=== PATIENT | female | born 1960 | race Caucasian/White ===

== ENCOUNTER 2020-05-06 13:28 | Outpatient (CLI) | payer BC, OTHER | END 2020-05-06 13:29 | disposition home or self-care (01) | LOC: CTENTCT 13:28 | PROVIDERS: ATTEND Student in an Organized Health Care Education/Training Program | DX: J32.9 Chronic sinusitis, unspecified (principal) | CPT/HCPCS: 70486 ==

== ENCOUNTER 2020-05-16 05:37 | Outpatient (CLI) | payer BC, OTHER ==
[2020-05-16 16:33] LABS: Hemoglobin 13.7 g/dL (12.0-16.0)
[2020-05-17 14:45] LABS: SARS-CoV-2 MS2 Positive; SARS-CoV-2 N Gene Negative; SARS-CoV-2 S Gene Negative; SARS-CoV-2 by NAA Not Detected (NotDetected); SARS-CoV-2 orf1ab Negative
== END 2020-05-16 05:38 | disposition home or self-care (01) ==
LOC: LABBT 05:37
PROVIDERS: ATTEND Otolaryngology Plastic Surgery within the Head & Neck
DX: Z01.812 Encounter for preprocedural laboratory examination (principal); Z11.59 Encounter for screening for other viral diseases; J32.9 Chronic sinusitis, unspecified; J32.1 Chronic frontal sinusitis; J32.3 Chronic sphenoidal sinusitis; J32.2 Chronic ethmoidal sinusitis
CPT/HCPCS: 85014; 85018; 87635; U0003

== ENCOUNTER 2020-05-21 07:08 | Day surgery (SDC) | payer BC, OTHER ==
[2020-05-16 10:21] VITALS: BMI 30.4
[2020-05-21] MEDS ORDERED: AFRIN NASAL MIST 15 ML BOT ONE (08:35)
[2020-05-21] MEDS ORDERED: Lidocaine 1% w/Epinephrine 1:100K 20 ML VIAL ONE (08:57)
[2020-05-21] MEDS ORDERED: Fentanyl 100 MCG/2 ML VIAL ONE ×3 (09:04→10:43)
[2020-05-21] MEDS ORDERED: Succinylcholine Chloride 20 MG/ML 10 ml SYRINGE FS ONE (10:44)
[2020-05-21] MEDS ORDERED: PROPOFOL 200 MG/20 ML VIAL ONE (10:44)
[2020-05-21] MEDS ORDERED: Ondansetron PF 4 MG/2 ML Vial ONE (10:44)
[2020-05-21] MEDS ORDERED: PHENYLEPHRINE-NS 100 MCG/ML 10 ML SYRINGE ONE (10:44)
[2020-05-21] MEDS ORDERED: Lidocaine 1% PF 5 ML VIAL ONE (10:44)
[2020-05-21] MEDS ORDERED: Dexamethasone 20 MG/5 ML VIAL ONE (10:44)
[2020-05-21] MEDS ORDERED: HYDROcodone/Acetaminophen 5/325 mg Tablet ONE (11:37)
--- NOTE | 2020-05-22 18:02 | OP ---
DATE OF PROCEDURE: 05/21/2020 PREOPERATIVE DIAGNOSES: 1. Chronic rhinosinusitis. 2. Nasal polyposis. 3. Allergic fungal sinusitis. 4. Nasal obstruction. POSTOPERATIVE DIAGNOSES: 1. Chronic rhinosinusitis. 2. Nasal polyposis. 3. Allergic fungal sinusitis. 4. Nasal obstruction. PROCEDURES PERFORMED: 1. Right total ethmoidectomies with sphenoidotomies including removal of tissue. 2. Bilateral nasal endoscopy, frontal sinus exploration. 3. [employer] stereotactic image-guided surgery. ESTIMATED BLOOD LOSS: 50 mL. COMPLICATIONS: None. ANESTHESIA: GETA. DESCRIPTION OF PROCEDURE: The patient was taken to the operating room and placed supine on the table. General endotracheal anesthesia was obtained by the Anesthesia Staff. Tube was secured in the left lower lip. The patient was then placed in a beach-chair position, was prepped and draped for standard nasal procedures. Following this, a 0-degree endoscope was advanced to the nasal cavity. 1% lidocaine with 1:100,000 epinephrine was injected into the nasal polyps protruding from the right middle meatus as well as the middle turbinates and lateral nasal wall bilaterally. Following this, the [email or web address] stereotactic image-guided system was set up and calibrated and navigational instruments were used throughout the procedure. Following this, the 0-degree microdebrider and the 0-degree endoscope were advanced in the right middle meatus. The right middle turbinate was medialized. Polypoid tissue and scar tissue from her previous ethmoidectomies were removed in the anterior ethmoidal area as well as the posterior ethmoidal sinuses. Following this, the right sphenoid sinus was identified using the navigational instruments. A puncture was created into the sphenoid sinus creating a sphenoid sinus ostia on this right side. Using the navigational instrument with the 0-degree microdebrider, the sphenoid sinus was then widened in a medial and inferior direction on the right side. Fungal debris and purulence were cultured from the right sphenoid sinus and removed using suction and Blakesley forceps. Following this, the 45-degree endoscope was used to visualize the frontal sinus recess area bilaterally. The 45-degree endoscope was then used to remove and open the frontal sinus ostia bilaterally along with the 40-degree microdebrider and Blakesley forceps using image-guided instruments. Following this, the nasal cavity was irrigated. Steroid implanted stents were placed within the frontal sinuses bilaterally as well as within the right posterior ethmoidal and sphenoid ostia area. The patient tolerated the procedure well. Job ID: [id number]
== END 2020-05-21 12:30 | disposition home or self-care (01) ==
LOC: SDC 07:08
PROVIDERS: ATTEND Otolaryngology Plastic Surgery within the Head & Neck
PROC: 099T8ZZ Drainage of Left Frontal Sinus, Via Natural or Artificial Opening Endoscopic (ICD-10-PCS; principal; 2020-05-21)
PROC: 09TV8ZZ Resection of Left Ethmoid Sinus, Via Natural or Artificial Opening Endoscopic (ICD-10-PCS; principal; 2020-05-21)
PROC: 09BW8ZZ Excision of Right Sphenoid Sinus, Via Natural or Artificial Opening Endoscopic (ICD-10-PCS; principal; 2020-05-21)
PROC: 099S8ZZ Drainage of Right Frontal Sinus, Via Natural or Artificial Opening Endoscopic (ICD-10-PCS; principal; 2020-05-21)
PROC: 09BX8ZZ Excision of Left Sphenoid Sinus, Via Natural or Artificial Opening Endoscopic (ICD-10-PCS; principal; 2020-05-21)
PROC: 8E09XBZ Computer Assisted Procedure of Head and Neck Region (ICD-10-PCS; principal; 2020-05-21)
PROC: 09TU8ZZ Resection of Right Ethmoid Sinus, Via Natural or Artificial Opening Endoscopic (ICD-10-PCS; principal; 2020-05-21)
DX: J32.8 Other chronic sinusitis (principal); J33.9 Nasal polyp, unspecified; J30.89 Other allergic rhinitis; J34.89 Other specified disorders of nose and nasal sinuses; G43.909 Migraine, unspecified, not intractable, without status migrainosus; I73.00 Raynaud's syndrome without gangrene; D68.51 Activated protein C resistance; L40.50 Arthropathic psoriasis, unspecified; Z79.01 Long term (current) use of anticoagulants; Z79.2 Long term (current) use of antibiotics; Z79.899 Other long term (current) drug therapy; Z88.5 Allergy status to narcotic agent; Z91.040 Latex allergy status
CPT/HCPCS: 87070; 87205; C2625; J1100; J2405; J2704; J3010